=== PATIENT | male | born 1990 ===

== ENCOUNTER 2018-10-17 09:39 | Outpatient (CLI) | payer BC, OTHER ==
[~2018-10-17] VITALS: Ht 180.3 cm; Wt 77.1 kg
[2018-10-17] MEDS ORDERED: HEPARIN INJ ONE (10:00)
[2018-10-17] MEDS ORDERED: DEXTROSE INJ ONE (10:00)
[2018-10-17] MEDS ORDERED: Lidocaine 1% Plain 30 ml INJ ONE (10:00)
--- NOTE | 2018-10-17 10:30 | Pre-Procedure Note/Attestation ---
Pre-Procedure Note/Attestation Complete Prior to Procedure Planned Procedure: not applicable Procedure Narrative: Peripherally inserted central catheter Indications for Procedure Pre-Operative Diagnosis: lyme disease needing residential abx Attestation I attest that I discussed the nature of the procedure; its benefits; risks and complications; and alternatives (and the risks and benefits of such alternatives ), prior to the procedure, with the patient (or the patient's legal indirect sales representative). I attest that, if there was a reasonable possibility of needing a blood transfusion, the patient (or the patient's legal indirect sales representative) was given the [facility] standardized written summary, pursuant to the Yogesh Juliaetta Blood Safety Act ([place] Health and Safety Code # 1645, as amended). I attest that I re-evaluated the patient just prior to the surgery and that there has been no change in the patient's H&P, except as documented below: Mark Fisher MD Oct 17, 2018 10:30
--- NOTE | 2018-10-17 10:31 | Brief Operative Note ---
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
--- NOTE | 2018-10-17 12:08 | Diagnostic Imaging Report ---
Indications: Needs long-term IV access Technique: Procedural timeout performed. Ultrasound confirms patent compressible right basilic vein. Total sterile technique, including sterile probe cover and sterile gel, hat, mask, sterile gown, large sterile drape, and preparation with 2% chlorhexidine utilized. Local anesthesia with 1% lidocaine. Under real-time ultrasound guidance, puncture right basilic vein using 21-gauge needle, documented and archived, passage 0.018 guidewire under direct fluoroscopy, which was used to determine appropriate catheter length, exchange for 5 [place] peel-away sheath. 5 [place] Bard dual-lumen power PICC cut to 42 cm. It was inserted through the peel-away sheath. Peel-away sheath and guidewire removed. Catheter fixed to the skin. Both catheter ports aspirated and flushed. Patient tolerated procedure well, without immediate complication. Digital radiograph documents satisfactory catheter tip position, at the cavoatrial junction. Total fluoroscopy time 12.2 seconds. Total dose area product 1.27 mGy Total number of images: 1 Impression: Successful placement of right arm PICC under sonographic and fluoroscopic guidance, as described above.
== END 2018-10-17 11:39 | disposition home or self-care (01) ==
LOC: RAD 09:39
DX: A69.20 Lyme disease, unspecified (principal)
CPT/HCPCS: 36569; 76937; J1644; J2001